=== PATIENT | female | born 1965 | race Caucasian/White ===

== ENCOUNTER → 2016-10-13 | Outpatient (CLI) | payer OTHER ==
[~2016-10-13] MED LIST: ALBUTEROL17 GM INH; ASPIRIN ENTERI325 M1; ASPIRIN81 MG PO; ATIVAN2 M1 PO; AUGMENTIN PO; AURALGAN OTIC S14 ML OT; BACLOFEN20 MG PO; BACTRIM DS TABL1 TAB PO; BENTYL20 MG PO; CELEBREX PO; CHANTIX1 MG BC; CIPRO PO; COLACE PO; DESYREL50 M1 PO; DESYREL50 MG PO; DOXEPIN HCL25 MG PO; FLOXIN OTIC5 M1 AD; HUMIRA40 MG/0.1 SQ; HYDROCODON-ACE1 EAC1 PO; HYDROCODON-ACE1 EAC7 PO; HYDROCODONE-APA1 T42 PO; KEFLEX PO; KLONOPIN PO; LIPITOR20 MG PO; LORTAB 5/500 TA1 TA1 PO; METHOCARBAMOL500 MG PO; METHOTREXATE2.5 MG PO; METOPROLOL SUCC25 MG PO; MOBIC PO; MOBIC15 MG DOB; NAPROSYN500 MG PO; NITROSTAT0.4 MG SL; NO MEDICATIONS; PERCOCET PO; PERCOCET5/325 PO; PHENERGAN PO; PLAVIX PO; ROBAXIN500 MG PO; TOPROL XL PO; TRAMADOL HCL50 M1 PO; TRAZODONE PO; VENLAFAXINE HC150 MG PO; VICODIN 5/500 T1 TAB PO; VOLTAREN75 MG PO; ZESTRIL5 MG PO; [UNRECOGNIZED DRUG - REMARK]
--- NOTE | ~2016-10-13 | CT2 ---
[facility] A Service of [facility] RADIOLOGY TEXT RESULTS PATIENT: LIV AHN LOCATION: [facility] : 61 UNIT #: [id number] AGE: [address]: Kiki Clayton APRN SEX: F ORDER DR: [id number] [facility] [address] [place], [place] [address] [id number] O MR#: [id number] Acc #: [id number] NAME: LIV AHN. : 1965 SEX: F STUDY DATE/TIME: 10/13/2016 10:54 UNIT: [facility] ROOM: STUDY DESCRIPTION: CT Abd and Pelv W Cont Attending Physician: Kiki Clayton Aprn Referring Physician: Kiki Clayton Aprn Ordering Physician: Kiki Clayton Aprn Primary Care Physician: Iam Dooley M.D. MEDICAL IMAGING REPORT This report is preliminary unless electronic signature is present EXAM CT scan of the abdomen and pelvis with contrast, 10/13/2016. HISTORY Right-side abdominal pain and mid abdominal pain for 2 weeks. 20 pound weight gain for the past [address] was performed through the abdomen and pelvis following oral and intravenous contrast administration. This CT exam was performed with one or more of the following radiation dose reduction techniques: automatic exposure control, adjustment of mA and/or kV according to patient size, and iterative reconstruction. FINDINGS ABDOMEN: There is mild fatty infiltration of the liver. The spleen, pancreas, adrenal glands are normal. The left kidney is normal. Some minimal cortical scarring of the right kidney is noted. The gallbladder is not visualized. It is presumed surgically absent. PELVIS FINDINGS: There is colonic diverticulosis without evidence of diverticulitis. The gut is otherwise unremarkable. No adenopathy is seen and there is no free fluid in the abdomen or pelvis. Images of the lung bases demonstrate moderate-sized hiatal hernia. IMPRESSION 1. Mild fatty infiltration of the liver. 2. The gallbladder is not visualized. It is presumed surgically absent. Correlation with patient history is suggested. 3. Minimal cortical scarring right kidney. The left kidney appears normal. 4. Diverticulosis. No evidence of diverticulitis. 5. Moderate-sized hiatal hernia. [facility]. [facility] A Service of [facility] RADIOLOGY TEXT RESULTS PATIENT: LIV AHN LOCATION: [facility] : 61 UNIT #: [id number] AGE: [address]: Kiki Clayton APRN SEX: F ORDER DR: Dictated by... Joe Delarosa M.D. THIS IS AN ELECTRONICALLY VERIFIED REPORT Joe Delarosa M.D. at 10/14/2016 6:33 AM ABBEY/aryan TD: 10/13/2016 23:06 JOB #: [id number] MEDICAL IMAGING REPORT Page 1 of 1 COPY
[2016-10-13 23:31] LABS: POC - CREATININE 0.98 mg/dL (0.44-1.03); POC - GFR >60.0 mL/min (>60)
== END | disposition home or self-care (01) ==
LOC: CCAT 09:06
PROVIDERS: Nurse Practitioner
DX: R10.9 Unspecified abdominal pain (principal); R93.3 Abnormal findings on diagnostic imaging of other parts of digestive tract; K76.0 Fatty (change of) liver, not elsewhere classified; K57.90 Diverticulosis of intestine, part unspecified, without perforation or abscess without bleeding; K44.9 Diaphragmatic hernia without obstruction or gangrene
CPT/HCPCS: 74177; 82565; Q9967